=== PATIENT | male | born 1980 | race Two or more races ===

== ENCOUNTER 2020-04-04 07:01 | Inpatient (IN) | payer MEDICAID, OTHER ==
[~2020-04-04] VITALS: Ht 177.8 cm; Wt 115.0 kg
[2020-04-04] VITALS (34 sets, daily range): BP systolic 86–117; BP diastolic 41–72
[2020-04-04] MEDS ORDERED: DexAMETHasone SOD PHOS 10MG/1ML VIAL INJ IV ONE (08:15)
[2020-04-04] MEDS ORDERED: cefTRIAXone 1GM/50ML D5W 50 ML IV ONE (08:15)
[2020-04-04] MEDS ORDERED: AZITHROMYCIN 500MG/ 250ML 250 ML IV ONE (08:15)
[2020-04-04] MEDS ORDERED: FUROSEMIDE 40 MG/4 ML VIAL IV ONE (08:15)
[2020-04-04 08:20] LABS: Albumin 3.3 g/dL (3.4-5.0); Calcium 8.5 mg/dL (8.5-10.1); Potassium 3.7 mmol/L (3.5-5.1)
[2020-04-04 08:23] LABS: BUN/Creatinine Ratio 14.7; Bilirubin, Total 0.9 mg/dL (0.2-1.0); Total Protein 6.4 g/dL (6.4-8.2)
[2020-04-04 08:28] LABS: Basophils # (auto) 0.1 10 ^3/uL (0-0.2); Basophils % (auto) 0.6 % (0.0-2.0); Eosinophils # (auto) 0.1 10 ^3/uL (0-0.8); Eosinophils % (auto) 0.9 % (0.0-7.0); Hematocrit 42.7 % (41.0-53.0); Lymphocytes % (auto) 15.4 % (10.0-50.0); Mean Corpuscular Hemoglobin 29.8 pg (28.0-32.0); Mean Corpuscular Hgb Conc. 32.7 g/dL (32.0-36.0); Mean Corpuscular Volume 91.3 fL (80.0-100.0); Monocytes # (auto) 0.8 10 ^3/uL (0-1.3); Monocytes % (auto) 6.1 % (0.0-12.0); Neutrophils # (auto) 9.8 10 ^3/uL (1.6-8.6); Nucleated Red Blood Cells % 0.1 %; Platelet Count (auto) 298 10^3/uL (140-450); Red Blood Cells 4.68 10^6/uL (4.5-5.90); Red Cell Distribution Width 15.3 % (11.8-14.3); White Blood Cell 12.8 10^3/uL (4.4-10.8)
[2020-04-04 08:32] LABS: Magnesium 2.2 mg/dL (1.6-2.6)
[2020-04-04 08:35] LABS: INR 1.25 (0.9-1.15); Partial Thromboplastin Time 23.6 sec (23.0-31.2)
[2020-04-04 09:03] LABS: Blood Alcohol < 3.0 mg/dL (0-5)
[2020-04-04 09:12] LABS: CRP High Sensitivity 2.54 mg/dL (< 0.3); Lactate Dehydrogenase 371 U/L (87-241)
[2020-04-04] MEDS ORDERED: LABETALOL HCL 5 MG/ML 4ML SYRINGE IV ONE (10:00)
[2020-04-04] MEDS ORDERED: ETOMIDATE (2MG/ML) 20ML VIAL IV ONE (10:30)
[2020-04-04] MEDS ORDERED: SUCCINYLCHOLINE CHLORIDE 20 MG/ML 10ML VIAL IV ONE (10:30)
[2020-04-04] MEDS ORDERED: MIDAZOLAM DRIP 50 mg/50mL 50 ML IV SCH (10:30)
[2020-04-04] MEDS ORDERED: PROPOFOL 100 ML IV ONE (10:41)
[2020-04-04] MEDS ORDERED: PROPOFOL 100 ML IV SCH (10:45)
[2020-04-04] MEDS: MIDAZOLAM DRIP 50 mg/50mL 50 ML IV SCH ×2 (10:45→20:00)
[2020-04-04] MEDS ORDERED: IOHEXOL 350 MG/ML 100ML IJ ONE (11:01)
[2020-04-04] MEDS ORDERED: PHENYLEPHRINE IV 250 ML IV ONE (11:49)
[2020-04-04] MEDS ORDERED: PHENYLEPHRINE IV 250 ML IV SCH (12:00)
[2020-04-04] MEDS ORDERED: NITROGLYCERIN 0.4 MG SL TAB SL PRN (12:45)
[2020-04-04 13:01] LABS: Urine WBC None Seen /hpf (0 - 3)
[2020-04-04 13:13] LABS: Urine Bacteria MANY /hpf (None Seen); Urine Blood 2+ /uL (Negative); Urine Specific Gravity 1.024 (1.001-1.035); Urine Sperm PRESENT /hpf (None Seen)
[2020-04-04] MEDS: DOPamine 1600MCG/ML D5W 250 ML IV SCH ×2 (13:20→20:00)
[2020-04-04] MEDS: fentaNYL Drip 2500mCg/250mlNS 250 ML IV SCH ×2 (13:30→20:00)
[2020-04-04 13:41] LABS: Alcohol, Urine < 3.0 mg/dL (0-10); Amphetamine Screen, Urine POSITIVE (NEGATIVE); Barbiturate Scree,Urine NEGATIVE (NEGATIVE); Benzodiazephine Screen, Urine POSITIVE (NEGATIVE); Cannabinoid Screen, Urine NEGATIVE (NEGATIVE); Cocaine Screen, Urine NEGATIVE (NEGATIVE); Opiate Scree,Urine NEGATIVE (NEGATIVE)
[2020-04-04 13:50] LABS: Phencyclidine Screen, Urine NEGATIVE (NEGATIVE)
[2020-04-04] MEDS: metroNIDAZOLE 500MG/100ML 100 ML IV SCH ×2 (14:00→22:00)
[2020-04-04] MEDS ORDERED: CLINDAMYCIN 300MG IV 50 ML IV SCH (14:00)
[2020-04-04] MEDS: FUROSEMIDE 20 MG/2 ML VIAL IV SCH (17:59)
[2020-04-04] MEDS ORDERED: FUROSEMIDE 20 MG/2 ML VIAL IV SCH (18:00)
[2020-04-04] MEDS: CLINDAMYCIN 300MG IV 50 ML IV SCH (20:00)
[2020-04-04] MEDS: ATORVASTATIN 20 MG TAB PO SCH (22:00)
[2020-04-04] MEDS ORDERED: SODIUM BICARBONATE 8.4% INJ 50ML SYRINGE IV ONE (22:41)
[2020-04-04] MEDS ORDERED: EPINEPHrine HCL 1 MG/10 ML SYRG IV ONE (22:41)
[2020-04-04] MEDS ORDERED: CALCIUM CHLOR(10%) 100MG/ML 10ML SYRINGE IV ONE (22:41)
[2020-04-04] MEDS ORDERED: AMIODARONE HCL (50 MG/ ML) 3 ML VIAL IV ONE (22:41)
[2020-04-04] MEDS ORDERED: ADENOSINE 6 MG/2 ML INJ IV ONE (22:41)
[2020-04-05] VITALS (103 sets, daily range): BP systolic 82–127; BP diastolic 42–85
[2020-04-05] MEDS: MIDAZOLAM DRIP 50 mg/50mL 50 ML IV SCH ×4 (01:00→22:10)
[2020-04-05] MEDS: DOPamine 1600MCG/ML D5W 250 ML IV SCH (02:00)
[2020-04-05] MEDS: CLINDAMYCIN 300MG IV 50 ML IV SCH (04:00)
[2020-04-05 04:14] LABS: Basophils # (auto) 0 10 ^3/uL (0-0.2); Basophils % (auto) 0.2 % (0.0-2.0); Eosinophils # (auto) 0 10 ^3/uL (0-0.8); Hematocrit 44.4 % (41.0-53.0); Hemoglobin 14.5 g/dL (13.5-17.5); Lymphocytes # (auto) 0.8 10 ^3/uL (0.4-5.4); Lymphocytes % (auto) 4.5 % (10.0-50.0); Mean Corpuscular Hemoglobin 29.8 pg (28.0-32.0); Mean Corpuscular Hgb Conc. 32.7 g/dL (32.0-36.0); Monocytes # (auto) 0.9 10 ^3/uL (0-1.3); Neutrophils # (auto) 15.7 10 ^3/uL (1.6-8.6); Neutrophils % (auto) 90.3 % (37.0-80.0); Nucleated Red Blood Cells % 0.1 %; Platelet Count (auto) 316 10^3/uL (140-450); Red Blood Cells 4.88 10^6/uL (4.5-5.90); Red Cell Distribution Width 14.9 % (11.8-14.3); White Blood Cell 17.4 10^3/uL (4.4-10.8)
[2020-04-05 04:40] LABS: Calcium 8.8 mg/dL (8.5-10.1); Potassium 4.1 mmol/L (3.5-5.1)
[2020-04-05 04:45] LABS: BUN/Creatinine Ratio 16.7
[2020-04-05] MEDS: metroNIDAZOLE 500MG/100ML 100 ML IV SCH (06:00)
[2020-04-05] MEDS: FUROSEMIDE 20 MG/2 ML VIAL IV SCH ×2 (07:10→18:02)
[2020-04-05 08:54] LABS: Cholesterol 160 mg/dL (< 200); HDL Cholesterol 22 mg/dL (40-59); LDL Cholesterol 124 mg/dL (< 100); Triglycerides 130 mg/dL (< 150)
[2020-04-05] MEDS ORDERED: DAPAGLIFLOZIN 5 MG TAB PO SCH (10:00)
[2020-04-05] MEDS ORDERED: OPTISON 3ml Vial for INJ IV ONE (10:45)
[2020-04-05] MEDS: ENOXAPARIN SOD 40 MG/0.4 ML SYRINGE SC SCH (10:57)
[2020-04-05] MEDS: PANTOPRAZOLE 40 MG/10 ML VIAL INJ IV SCH (10:57)
[2020-04-05] MEDS ORDERED: PIPERACILLIN-TAZO 4.5GM 100 ML IV ONE (11:00)
[2020-04-05] MEDS: fentaNYL Drip 2500mCg/250mlNS 250 ML IV SCH (11:19)
[2020-04-05] MEDS: NOREPINEPHRINE 8 MG/250ML KIT 250 ML IV SCH (12:00)
[2020-04-05] MEDS ORDERED: PROPOFOL 100 ML IV ONE (18:21)
[2020-04-05] MEDS: PROPOFOL 100 ML IV SCH (18:30)
[2020-04-05] MEDS: PIPERACILLIN-TAZO 4.5GM 100 ML IV SCH (19:42)
[2020-04-05] MEDS: ATORVASTATIN 20 MG TAB PO SCH (21:41)
[2020-04-06] VITALS (99 sets, daily range): BP systolic 91–126; BP diastolic 52–87
[2020-04-06] MEDS: MIDAZOLAM DRIP 50 mg/50mL 50 ML IV SCH ×5 (01:07→22:03)
[2020-04-06] MEDS: PIPERACILLIN-TAZO 4.5GM 100 ML IV SCH ×3 (03:06→18:30)
[2020-04-06 04:12] LABS: Basophils # (auto) 0 10 ^3/uL (0-0.2); Basophils % (auto) 0.2 % (0.0-2.0); Eosinophils # (auto) 0 10 ^3/uL (0-0.8); Hematocrit 41.2 % (41.0-53.0); Hemoglobin 13.1 g/dL (13.5-17.5); Lymphocytes # (auto) 1.1 10 ^3/uL (0.4-5.4); Lymphocytes % (auto) 6.5 % (10.0-50.0); Mean Corpuscular Hemoglobin 29.4 pg (28.0-32.0); Mean Corpuscular Hgb Conc. 31.8 g/dL (32.0-36.0); Mean Corpuscular Volume 92.4 fL (80.0-100.0); Monocytes # (auto) 1.1 10 ^3/uL (0-1.3); Monocytes % (auto) 6.4 % (0.0-12.0); Neutrophils # (auto) 15.1 10 ^3/uL (1.6-8.6); Neutrophils % (auto) 86.9 % (37.0-80.0); Nucleated Red Blood Cells % 0.1 %; Platelet Count (auto) 307 10^3/uL (140-450); Red Blood Cells 4.46 10^6/uL (4.5-5.90); Red Cell Distribution Width 15.4 % (11.8-14.3); White Blood Cell 17.4 10^3/uL (4.4-10.8)
[2020-04-06 04:27] LABS: Potassium 4.4 mmol/L (3.5-5.1)
[2020-04-06 04:31] LABS: Albumin 2.7 g/dL (3.4-5.0); BUN/Creatinine Ratio 24.3; Bilirubin, Total 0.5 mg/dL (0.2-1.0); Calcium 8.1 mg/dL (8.5-10.1); Total Protein 5.9 g/dL (6.4-8.2)
[2020-04-06] MEDS: FUROSEMIDE 20 MG/2 ML VIAL IV SCH (05:36)
[2020-04-06] MEDS ORDERED: LORazepam 2MG/ML-1ML VIAL IV PRN (09:00)
[2020-04-06] MEDS: PANTOPRAZOLE 40 MG/10 ML VIAL INJ IV SCH (09:27)
[2020-04-06] MEDS: ENOXAPARIN SOD 40 MG/0.4 ML SYRINGE SC SCH (09:27)
[2020-04-06] MEDS: PROPOFOL 100 ML IV SCH ×2 (10:43→17:08)
[2020-04-06] MEDS: NOREPINEPHRINE 8 MG/250ML KIT 250 ML IV SCH (11:45)
[2020-04-06] MEDS: fentaNYL Drip 2500mCg/250mlNS 250 ML IV SCH ×2 (12:45→16:16)
[2020-04-06] MEDS ORDERED: FUROSEMIDE 20 MG/2 ML VIAL IV ONE (18:45)
[2020-04-06] MEDS: ATORVASTATIN 20 MG TAB PO SCH (21:57)
[2020-04-07] VITALS (103 sets, daily range): BP systolic 88–126; BP diastolic 46–87
[2020-04-07] MEDS: PIPERACILLIN-TAZO 4.5GM 100 ML IV SCH ×3 (03:28→18:14)
[2020-04-07 03:43] LABS: Basophils # (auto) 0 10 ^3/uL (0-0.2); Basophils % (auto) 0.3 % (0.0-2.0); Eosinophils # (auto) 0 10 ^3/uL (0-0.8); Eosinophils % (auto) 0.3 % (0.0-7.0); Hematocrit 39.6 % (41.0-53.0); Hemoglobin 12.6 g/dL (13.5-17.5); Lymphocytes # (auto) 1.5 10 ^3/uL (0.4-5.4); Lymphocytes % (auto) 11.3 % (10.0-50.0); Mean Corpuscular Hemoglobin 29.5 pg (28.0-32.0); Mean Corpuscular Hgb Conc. 31.9 g/dL (32.0-36.0); Mean Corpuscular Volume 92.5 fL (80.0-100.0); Monocytes # (auto) 1.3 10 ^3/uL (0-1.3); Monocytes % (auto) 9.7 % (0.0-12.0); Neutrophils # (auto) 10.2 10 ^3/uL (1.6-8.6); Neutrophils % (auto) 78.4 % (37.0-80.0); Platelet Count (auto) 263 10^3/uL (140-450); Red Blood Cells 4.28 10^6/uL (4.5-5.90); Red Cell Distribution Width 15.9 % (11.8-14.3)
[2020-04-07 04:05] LABS: Potassium 3.7 mmol/L (3.5-5.1)
[2020-04-07 04:21] LABS: Albumin 2.5 g/dL (3.4-5.0); BUN/Creatinine Ratio 21.7; Bilirubin, Total 0.5 mg/dL (0.2-1.0); Calcium 8.2 mg/dL (8.5-10.1); Total Protein 5.5 g/dL (6.4-8.2)
[2020-04-07] MEDS: FUROSEMIDE 20 MG/2 ML VIAL IV SCH ×2 (06:03→18:12)
[2020-04-07] MEDS: MIDAZOLAM DRIP 50 mg/50mL 50 ML IV SCH ×4 (06:42→18:12)
[2020-04-07] MEDS: fentaNYL Drip 2500mCg/250mlNS 250 ML IV SCH ×2 (06:43→22:04)
[2020-04-07] MEDS: PANTOPRAZOLE 40 MG/10 ML VIAL INJ IV SCH (09:11)
[2020-04-07] MEDS: ENOXAPARIN SOD 40 MG/0.4 ML SYRINGE SC SCH (09:11)
[2020-04-07] MEDS: NOREPINEPHRINE 8 MG/250ML KIT 250 ML IV SCH (11:45)
[2020-04-07] MEDS: PROPOFOL 100 ML IV SCH ×2 (13:45→22:05)
[2020-04-07] MEDS: ATORVASTATIN 20 MG TAB PO SCH (21:28)
[2020-04-08] VITALS (101 sets, daily range): BP systolic 92–166; BP diastolic 50–141
[2020-04-08] MEDS: PIPERACILLIN-TAZO 4.5GM 100 ML IV SCH ×2 (03:37→10:17)
[2020-04-08] MEDS: MIDAZOLAM DRIP 50 mg/50mL 50 ML IV SCH ×2 (03:41→13:49)
[2020-04-08 03:55] LABS: Basophils # (auto) 0 10 ^3/uL (0-0.2); Basophils % (auto) 0.4 % (0.0-2.0); Eosinophils # (auto) 0.2 10 ^3/uL (0-0.8); Eosinophils % (auto) 1.6 % (0.0-7.0); Hemoglobin 13.5 g/dL (13.5-17.5); Lymphocytes # (auto) 1.7 10 ^3/uL (0.4-5.4); Lymphocytes % (auto) 15.5 % (10.0-50.0); Mean Corpuscular Hgb Conc. 32.9 g/dL (32.0-36.0); Mean Corpuscular Volume 91.3 fL (80.0-100.0); Monocytes % (auto) 8.8 % (0.0-12.0); Neutrophils # (auto) 8.1 10 ^3/uL (1.6-8.6); Neutrophils % (auto) 73.7 % (37.0-80.0); Platelet Count (auto) 246 10^3/uL (140-450); Red Blood Cells 4.49 10^6/uL (4.5-5.90); Red Cell Distribution Width 15.9 % (11.8-14.3)
[2020-04-08 04:17] LABS: Potassium 3.3 mmol/L (3.5-5.1)
[2020-04-08 04:26] LABS: Albumin 2.4 g/dL (3.4-5.0); BUN/Creatinine Ratio 19.8; Bilirubin, Total 0.7 mg/dL (0.2-1.0); Calcium 8.4 mg/dL (8.5-10.1)
[2020-04-08] MEDS: FUROSEMIDE 20 MG/2 ML VIAL IV SCH (09:08)
[2020-04-08] MEDS: ENOXAPARIN SOD 40 MG/0.4 ML SYRINGE SC SCH (09:10)
[2020-04-08] MEDS: PANTOPRAZOLE 40 MG/10 ML VIAL INJ IV SCH (09:10)
[2020-04-08] MEDS: NOREPINEPHRINE 8 MG/250ML KIT 250 ML IV SCH (11:45)
[2020-04-08] MEDS: PROPOFOL 100 ML IV SCH ×3 (13:46→23:57)
[2020-04-08] MEDS ORDERED: chlordiazePOXIDE HCL 25 MG CAP PO ONE (14:45)
[2020-04-08] MEDS: PIPERACILLIN-TAZOB 2.25GM 50 ML IV SCH ×2 (17:13→23:37)
[2020-04-08] MEDS: chlordiazePOXIDE HCL 25 MG CAP PO SCH ×2 (17:13→23:37)
[2020-04-08] MEDS: fentaNYL Drip 2500mCg/250mlNS 250 ML IV SCH (17:31)
[2020-04-08] MEDS: ALBUMIN 25% 100 ML IV SCH (17:36)
[2020-04-08 19:00] LABS: Urine Bacteria NONE SEEN /hpf (None Seen); Urine Blood 3+ /uL (Negative); Urine Mucus FEW (None Seen); Urine Specific Gravity 1.011 (1.001-1.035); Urine WBC 5 /hpf (0 - 3)
[2020-04-08 19:10] LABS: Protein, Urine 26.1 mg/dL (0.0-11.9)
[2020-04-08] MEDS: ATORVASTATIN 20 MG TAB PO SCH (21:45)
[2020-04-09] VITALS (101 sets, daily range): BP systolic 102–134; BP diastolic 62–97
[2020-04-09] MEDS: ALBUMIN 25% 100 ML IV SCH ×2 (01:45→08:35)
[2020-04-09 04:33] LABS: Basophils # (auto) 0.1 10 ^3/uL (0-0.2); Basophils % (auto) 0.6 % (0.0-2.0); Eosinophils # (auto) 0.4 10 ^3/uL (0-0.8); Hematocrit 44.2 % (41.0-53.0); Hemoglobin 13.9 g/dL (13.5-17.5); Lymphocytes # (auto) 1.6 10 ^3/uL (0.4-5.4); Lymphocytes % (auto) 11.7 % (10.0-50.0); Mean Corpuscular Hemoglobin 28.8 pg (28.0-32.0); Mean Corpuscular Hgb Conc. 31.5 g/dL (32.0-36.0); Mean Corpuscular Volume 91.4 fL (80.0-100.0); Monocytes # (auto) 1.3 10 ^3/uL (0-1.3); Monocytes % (auto) 9.4 % (0.0-12.0); Neutrophils # (auto) 10.2 10 ^3/uL (1.6-8.6); Neutrophils % (auto) 75.3 % (37.0-80.0); Platelet Count (auto) 237 10^3/uL (140-450); Red Blood Cells 4.83 10^6/uL (4.5-5.90); Red Cell Distribution Width 15.7 % (11.8-14.3); White Blood Cell 13.6 10^3/uL (4.4-10.8)
[2020-04-09 05:00] LABS: Calcium 8.8 mg/dL (8.5-10.1); Potassium 3.7 mmol/L (3.5-5.1)
[2020-04-09 05:03] LABS: BUN/Creatinine Ratio 15.6
[2020-04-09] MEDS: chlordiazePOXIDE HCL 25 MG CAP PO SCH ×3 (06:32→17:29)
[2020-04-09] MEDS: PIPERACILLIN-TAZOB 2.25GM 50 ML IV SCH ×3 (06:32→17:29)
[2020-04-09] MEDS: ENOXAPARIN SOD 40 MG/0.4 ML SYRINGE SC SCH (09:51)
[2020-04-09] MEDS: PANTOPRAZOLE 40 MG/10 ML VIAL INJ IV SCH (09:51)
[2020-04-09] MEDS: FUROSEMIDE 20 MG/2 ML VIAL IV SCH (09:51)
[2020-04-09] MEDS: PROPOFOL 100 ML IV SCH ×3 (11:22→22:02)
[2020-04-09] MEDS: NOREPINEPHRINE 8 MG/250ML KIT 250 ML IV SCH (11:45)
[2020-04-09] MEDS: ATORVASTATIN 20 MG TAB PO SCH (22:02)
[2020-04-09] MEDS: Glucerna 1.2 Cal 1Liter BOTTLE GT SCH (22:03)
[2020-04-10] VITALS (103 sets, daily range): BP systolic 96–163; BP diastolic 57–106
[2020-04-10] MEDS: chlordiazePOXIDE HCL 25 MG CAP PO SCH ×4 (00:07→17:14)
[2020-04-10] MEDS: PIPERACILLIN-TAZOB 2.25GM 50 ML IV SCH ×4 (00:07→17:13)
[2020-04-10] MEDS: PROPOFOL 100 ML IV SCH ×6 (01:49→21:36)
[2020-04-10] MEDS: fentaNYL Drip 2500mCg/250mlNS 250 ML IV SCH (05:39)
[2020-04-10] MEDS ORDERED: ALBUMIN 5% 250 ML IV ONE (08:30)
[2020-04-10 08:50] LABS: Basophils # (auto) 0.1 10 ^3/uL (0-0.2); Basophils % (auto) 0.7 % (0.0-2.0); Eosinophils # (auto) 0.5 10 ^3/uL (0-0.8); Eosinophils % (auto) 3.5 % (0.0-7.0); Hematocrit 44.1 % (41.0-53.0); Hemoglobin 14.3 g/dL (13.5-17.5); Lymphocytes # (auto) 1.1 10 ^3/uL (0.4-5.4); Lymphocytes % (auto) 8.2 % (10.0-50.0); Mean Corpuscular Hemoglobin 29.5 pg (28.0-32.0); Mean Corpuscular Hgb Conc. 32.5 g/dL (32.0-36.0); Mean Corpuscular Volume 90.9 fL (80.0-100.0); Monocytes % (auto) 7.6 % (0.0-12.0); Neutrophils # (auto) 10.4 10 ^3/uL (1.6-8.6); Nucleated Red Blood Cells % 0.1 %; Platelet Count (auto) 230 10^3/uL (140-450); Red Blood Cells 4.86 10^6/uL (4.5-5.90); White Blood Cell 12.9 10^3/uL (4.4-10.8)
[2020-04-10 09:10] LABS: BUN/Creatinine Ratio 20.4; Calcium 9.1 mg/dL (8.5-10.1); Potassium 3.4 mmol/L (3.5-5.1)
[2020-04-10] MEDS: PANTOPRAZOLE 40 MG/10 ML VIAL INJ IV SCH (09:15)
[2020-04-10] MEDS ORDERED: METOCLOPRAMIDE HCL 5MG/ml INJ 2ml VIAL IV PRN ×2 (09:45→10:15)
[2020-04-10] MEDS ORDERED: ENOXAPARIN SOD 30 MG/0.3 ML SYRINGE SC SCH (10:00)
[2020-04-10] MEDS: MIDAZOLAM DRIP 50 mg/50mL 50 ML IV SCH (10:45)
[2020-04-10] MEDS: POTASSIUM CHL 20MEQ/100ML 100 ML IV SCH ×2 (10:52→12:17)
[2020-04-10] MEDS: D5W 5% 1,000 ML IV SCH (10:53)
[2020-04-10] MEDS: NOREPINEPHRINE 8 MG/250ML KIT 250 ML IV SCH (11:41)
[2020-04-10] MEDS: ATORVASTATIN 20 MG TAB PO SCH (21:41)
[2020-04-11] VITALS (64 sets, daily range): BP systolic 103–158; BP diastolic 67–113
[2020-04-11] MEDS: Glucerna 1.2 Cal 1Liter BOTTLE GT SCH (00:24)
[2020-04-11] MEDS: PROPOFOL 100 ML IV SCH ×6 (00:24→20:30)
[2020-04-11] MEDS: chlordiazePOXIDE HCL 25 MG CAP PO SCH ×4 (00:24→17:56)
[2020-04-11] MEDS: D5W 5% 1,000 ML IV SCH ×2 (00:25→12:25)
[2020-04-11] MEDS: PIPERACILLIN-TAZOB 2.25GM 50 ML IV SCH ×4 (00:25→17:56)
[2020-04-11] MEDS: fentaNYL Drip 2500mCg/250mlNS 250 ML IV SCH (02:54)
[2020-04-11 05:27] LABS: Basophils # (auto) 0.1 10 ^3/uL (0-0.2); Basophils % (auto) 0.4 % (0.0-2.0); Eosinophils # (auto) 0.8 10 ^3/uL (0-0.8); Eosinophils % (auto) 5.8 % (0.0-7.0); Hematocrit 43.7 % (41.0-53.0); Hemoglobin 14.2 g/dL (13.5-17.5); Lymphocytes # (auto) 1.5 10 ^3/uL (0.4-5.4); Lymphocytes % (auto) 11.2 % (10.0-50.0); Mean Corpuscular Hemoglobin 29.4 pg (28.0-32.0); Mean Corpuscular Hgb Conc. 32.4 g/dL (32.0-36.0); Mean Corpuscular Volume 90.8 fL (80.0-100.0); Monocytes # (auto) 1.2 10 ^3/uL (0-1.3); Monocytes % (auto) 8.9 % (0.0-12.0); Neutrophils # (auto) 10.1 10 ^3/uL (1.6-8.6); Neutrophils % (auto) 73.7 % (37.0-80.0); Platelet Count (auto) 243 10^3/uL (140-450); Red Blood Cells 4.81 10^6/uL (4.5-5.90); Red Cell Distribution Width 15.2 % (11.8-14.3); White Blood Cell 13.7 10^3/uL (4.4-10.8)
[2020-04-11 05:54] LABS: Potassium 3.5 mmol/L (3.5-5.1)
[2020-04-11 05:57] LABS: BUN/Creatinine Ratio 17.9
[2020-04-11] MEDS: MIDAZOLAM DRIP 50 mg/50mL 50 ML IV SCH (10:45)
[2020-04-11] MEDS: ENOXAPARIN SOD 40 MG/0.4 ML SYRINGE SC SCH (10:47)
[2020-04-11] MEDS: PANTOPRAZOLE 40 MG/10 ML VIAL INJ IV SCH (10:47)
[2020-04-11] MEDS: NOREPINEPHRINE 8 MG/250ML KIT 250 ML IV SCH (11:45)
[2020-04-11] MEDS: CARVEDILOL 3.125 MG TAB PO SCH ×2 (22:00→23:00)
[2020-04-11] MEDS: ATORVASTATIN 20 MG TAB PO SCH (22:00)
[2020-04-12] VITALS (59 sets, daily range): BP systolic 96–187; BP diastolic 57–124
[2020-04-12] MEDS: chlordiazePOXIDE HCL 25 MG CAP PO SCH ×2 (00:17→06:07)
[2020-04-12] MEDS: PIPERACILLIN-TAZOB 2.25GM 50 ML IV SCH ×3 (00:17→12:00)
[2020-04-12] MEDS: PROPOFOL 100 ML IV SCH ×2 (01:09→07:59)
[2020-04-12] MEDS: fentaNYL Drip 2500mCg/250mlNS 250 ML IV SCH (03:28)
[2020-04-12] MEDS: PANTOPRAZOLE 40 MG/10 ML VIAL INJ IV SCH (10:00)
[2020-04-12] MEDS: MIDAZOLAM DRIP 50 mg/50mL 50 ML IV SCH (10:45)
[2020-04-12] MEDS: ENOXAPARIN SOD 40 MG/0.4 ML SYRINGE SC SCH (11:11)
[2020-04-12] MEDS: NOREPINEPHRINE 8 MG/250ML KIT 250 ML IV SCH (11:45)
[2020-04-12] MEDS ORDERED: LORazepam 2MG/ML-1ML VIAL IV PRN (13:45)
[2020-04-12] MEDS: MORPHINE SULF INJ 2 MG/ML SYRINGE 1ML IV PRN (20:22)
[2020-04-12] MEDS: LORazepam 2MG/ML-1ML VIAL IV PRN (20:23)
[2020-04-12] MEDS: CARVEDILOL 3.125 MG TAB PO SCH (22:00)
[2020-04-12] MEDS: ATORVASTATIN 20 MG TAB PO SCH (22:00)
[2020-04-13] VITALS (9 sets, daily range): BP systolic 126–155; BP diastolic 81–99
[2020-04-13] MEDS: MORPHINE SULF INJ 2 MG/ML SYRINGE 1ML IV PRN (00:03)
[2020-04-13 04:20] LABS: Basophils # (auto) 0 10 ^3/uL (0-0.2); Basophils % (auto) 0.3 % (0.0-2.0); Eosinophils # (auto) 0.5 10 ^3/uL (0-0.8); Eosinophils % (auto) 3.4 % (0.0-7.0); Hematocrit 47.6 % (41.0-53.0); Hemoglobin 15.1 g/dL (13.5-17.5); Lymphocytes # (auto) 1.4 10 ^3/uL (0.4-5.4); Lymphocytes % (auto) 9.2 % (10.0-50.0); Mean Corpuscular Hemoglobin 28.7 pg (28.0-32.0); Mean Corpuscular Hgb Conc. 31.8 g/dL (32.0-36.0); Mean Corpuscular Volume 90.4 fL (80.0-100.0); Monocytes # (auto) 1.3 10 ^3/uL (0-1.3); Monocytes % (auto) 8.5 % (0.0-12.0); Neutrophils # (auto) 12.3 10 ^3/uL (1.6-8.6); Neutrophils % (auto) 78.6 % (37.0-80.0); Nucleated Red Blood Cells % 0.1 %; Platelet Count (auto) 276 10^3/uL (140-450); Red Blood Cells 5.27 10^6/uL (4.5-5.90); Red Cell Distribution Width 15.3 % (11.8-14.3); White Blood Cell 15.6 10^3/uL (4.4-10.8)
[2020-04-13 04:38] LABS: Calcium 9.8 mg/dL (8.5-10.1); Potassium 3.3 mmol/L (3.5-5.1)
[2020-04-13 04:39] LABS: BUN/Creatinine Ratio 17.1
[2020-04-13] MEDS: PIPERACILLIN-TAZOB 2.25GM 50 ML IV SCH ×5 (06:00→23:34)
[2020-04-13] MEDS: LORazepam 2MG/ML-1ML VIAL IV PRN (07:46)
[2020-04-13] MEDS ORDERED: HALOPERIDOL LACTATE 5 MG/ML INJ VIAL IM ONE (09:00)
[2020-04-13] MEDS ORDERED: D5W 5% 1,000 ML IV ONE (09:00)
[2020-04-13] MEDS: POTASSIUM CHL 20MEQ/100ML 100 ML IV SCH ×2 (09:11→11:12)
[2020-04-13] MEDS: ENOXAPARIN SOD 40 MG/0.4 ML SYRINGE SC SCH (09:24)
[2020-04-13] MEDS: PANTOPRAZOLE 40 MG/10 ML VIAL INJ IV SCH (09:24)
[2020-04-13] MEDS: CARVEDILOL 3.125 MG TAB PO SCH ×2 (10:00→23:33)
[2020-04-13] MEDS: MIDAZOLAM DRIP 50 mg/50mL 50 ML IV SCH (10:05)
[2020-04-13] MEDS ORDERED: HALOPERIDOL LACTATE 5 MG/ML INJ VIAL IM PRN (20:15)
[2020-04-13] MEDS: ATORVASTATIN 20 MG TAB PO SCH (23:34)
[2020-04-14] MEDS: LORazepam 2MG/ML-1ML VIAL IV PRN (02:51)
[2020-04-14 05:00] VITALS: BP 130/91
[2020-04-14] MEDS: PIPERACILLIN-TAZOB 2.25GM 50 ML IV SCH ×4 (05:33→23:46)
[2020-04-14 09:00] VITALS: BP 136/89
[2020-04-14] MEDS ORDERED: D5W 5% 1,000 ML IV ONE (09:15)
[2020-04-14] MEDS: CARVEDILOL 3.125 MG TAB PO SCH ×2 (10:00→14:20)
[2020-04-14] MEDS: PANTOPRAZOLE 40 MG/10 ML VIAL INJ IV SCH (12:14)
[2020-04-14] MEDS: ENOXAPARIN SOD 40 MG/0.4 ML SYRINGE SC SCH (12:15)
[2020-04-14 12:31] LABS: Basophils # (auto) 0.1 10 ^3/uL (0-0.2); Basophils % (auto) 0.8 % (0.0-2.0); Eosinophils # (auto) 0.3 10 ^3/uL (0-0.8); Eosinophils % (auto) 1.9 % (0.0-7.0); Lymphocytes # (auto) 2.1 10 ^3/uL (0.4-5.4); Lymphocytes % (auto) 13.2 % (10.0-50.0); Mean Corpuscular Hemoglobin 29.3 pg (28.0-32.0); Mean Corpuscular Volume 91.4 fL (80.0-100.0); Monocytes # (auto) 1.1 10 ^3/uL (0-1.3); Monocytes % (auto) 6.8 % (0.0-12.0); Neutrophils # (auto) 12.2 10 ^3/uL (1.6-8.6); Neutrophils % (auto) 77.3 % (37.0-80.0); Nucleated Red Blood Cells % 0.1 %; Platelet Count (auto) 301 10^3/uL (140-450); Red Blood Cells 5.47 10^6/uL (4.5-5.90); Red Cell Distribution Width 15.3 % (11.8-14.3); White Blood Cell 15.8 10^3/uL (4.4-10.8)
[2020-04-14 12:48] LABS: BUN/Creatinine Ratio 17.2; Calcium 9.7 mg/dL (8.5-10.1); Potassium 3.8 mmol/L (3.5-5.1)
[2020-04-14 13:00] VITALS: BP 133/91
[2020-04-14 16:18] VITALS: BP 129/88
[2020-04-14 22:00] VITALS: BP 136/93
[2020-04-14] MEDS: ATORVASTATIN 20 MG TAB PO SCH (22:31)
[2020-04-15] MEDS: PIPERACILLIN-TAZOB 2.25GM 50 ML IV SCH ×3 (05:27→17:47)
[2020-04-15 05:45] LABS: Basophils # (auto) 0.1 10 ^3/uL (0-0.2); Basophils % (auto) 0.4 % (0.0-2.0); Eosinophils # (auto) 0.9 10 ^3/uL (0-0.8); Eosinophils % (auto) 5.3 % (0.0-7.0); Hematocrit 47.6 % (41.0-53.0); Hemoglobin 15.2 g/dL (13.5-17.5); Lymphocytes # (auto) 3.3 10 ^3/uL (0.4-5.4); Lymphocytes % (auto) 19.6 % (10.0-50.0); Mean Corpuscular Hemoglobin 28.8 pg (28.0-32.0); Mean Corpuscular Hgb Conc. 31.9 g/dL (32.0-36.0); Mean Corpuscular Volume 90.3 fL (80.0-100.0); Monocytes # (auto) 1.1 10 ^3/uL (0-1.3); Monocytes % (auto) 6.7 % (0.0-12.0); Neutrophils # (auto) 11.3 10 ^3/uL (1.6-8.6); Nucleated Red Blood Cells % 0.1 %; Platelet Count (auto) 281 10^3/uL (140-450); Red Blood Cells 5.28 10^6/uL (4.5-5.90); Red Cell Distribution Width 15.2 % (11.8-14.3); White Blood Cell 16.7 10^3/uL (4.4-10.8)
[2020-04-15 06:08] LABS: Potassium 3.3 mmol/L (3.5-5.1)
[2020-04-15 06:11] LABS: BUN/Creatinine Ratio 17.2; Calcium 8.8 mg/dL (8.5-10.1)
[2020-04-15 09:00] VITALS: BP 131/96
[2020-04-15] MEDS ORDERED: POTASSIUM EFFERVESENT TAB 25 MEQ PO ONE (10:00)
[2020-04-15] MEDS: PANTOPRAZOLE 40 MG/10 ML VIAL INJ IV SCH (10:17)
[2020-04-15] MEDS: ENOXAPARIN SOD 40 MG/0.4 ML SYRINGE SC SCH (10:18)
[2020-04-15] MEDS: CARVEDILOL 3.125 MG TAB PO SCH ×2 (10:18→22:00)
[2020-04-15 13:00] VITALS: BP 131/93
[2020-04-15 17:00] VITALS: BP 132/95
[2020-04-15] MEDS: ATORVASTATIN 20 MG TAB PO SCH (22:00)
[2020-04-16] MEDS: PIPERACILLIN-TAZOB 2.25GM 50 ML IV SCH ×4 (00:30→17:36)
[2020-04-16 01:17] VITALS: BP 140/104
[2020-04-16] MEDS: ACETAMINOPHEN 650 mg PER 20.3 mL UD PO PRN (04:08)
[2020-04-16 05:41] VITALS: BP 148/93
[2020-04-16 06:30] LABS: Basophils # (auto) 0.1 10 ^3/uL (0-0.2); Basophils % (auto) 0.4 % (0.0-2.0); Eosinophils # (auto) 0.8 10 ^3/uL (0-0.8); Eosinophils % (auto) 4.9 % (0.0-7.0); Hematocrit 45.9 % (41.0-53.0); Hemoglobin 14.8 g/dL (13.5-17.5); Lymphocytes # (auto) 2.6 10 ^3/uL (0.4-5.4); Lymphocytes % (auto) 15.5 % (10.0-50.0); Mean Corpuscular Hemoglobin 28.8 pg (28.0-32.0); Mean Corpuscular Hgb Conc. 32.1 g/dL (32.0-36.0); Mean Corpuscular Volume 89.5 fL (80.0-100.0); Monocytes % (auto) 6.3 % (0.0-12.0); Neutrophils # (auto) 12.1 10 ^3/uL (1.6-8.6); Neutrophils % (auto) 72.9 % (37.0-80.0); Platelet Count (auto) 269 10^3/uL (140-450); Red Blood Cells 5.13 10^6/uL (4.5-5.90); Red Cell Distribution Width 14.8 % (11.8-14.3); White Blood Cell 16.6 10^3/uL (4.4-10.8)
[2020-04-16 06:57] LABS: Albumin 2.8 g/dL (3.4-5.0); Calcium 8.6 mg/dL (8.5-10.1); Potassium 3.3 mmol/L (3.5-5.1)
[2020-04-16 07:01] LABS: BUN/Creatinine Ratio 17.6; Bilirubin, Total 0.6 mg/dL (0.2-1.0); Total Protein 6.8 g/dL (6.4-8.2)
[2020-04-16] MEDS: ENOXAPARIN SOD 40 MG/0.4 ML SYRINGE SC SCH (09:07)
[2020-04-16] MEDS: PANTOPRAZOLE 40 MG/10 ML VIAL INJ IV SCH (09:07)
[2020-04-16] MEDS: CARVEDILOL 3.125 MG TAB PO SCH ×2 (09:08→22:18)
[2020-04-16 09:11] VITALS: BP 141/106
[2020-04-16 12:30] VITALS: BP 144/96
[2020-04-16 17:00] VITALS: BP 139/98
[2020-04-16] MEDS: POTASSIUM EFFERVESENT TAB 25 MEQ PO SCH (17:36)
[2020-04-16] MEDS: ATORVASTATIN 20 MG TAB PO SCH (22:17)
[2020-04-17] MEDS: PIPERACILLIN-TAZOB 2.25GM 50 ML IV SCH ×4 (00:07→17:40)
[2020-04-17 05:00] VITALS: BP 137/100
[2020-04-17 06:08] LABS: Basophils # (auto) 0.1 10 ^3/uL (0-0.2); Basophils % (auto) 0.4 % (0.0-2.0); Eosinophils # (auto) 0.7 10 ^3/uL (0-0.8); Eosinophils % (auto) 4.7 % (0.0-7.0); Hematocrit 44.7 % (41.0-53.0); Hemoglobin 14.3 g/dL (13.5-17.5); Lymphocytes # (auto) 2.8 10 ^3/uL (0.4-5.4); Lymphocytes % (auto) 19.6 % (10.0-50.0); Mean Corpuscular Hemoglobin 28.8 pg (28.0-32.0); Mean Corpuscular Hgb Conc. 32.1 g/dL (32.0-36.0); Mean Corpuscular Volume 89.5 fL (80.0-100.0); Monocytes % (auto) 7.4 % (0.0-12.0); Neutrophils # (auto) 9.5 10 ^3/uL (1.6-8.6); Neutrophils % (auto) 67.9 % (37.0-80.0); Nucleated Red Blood Cells % 0.1 %; Platelet Count (auto) 215 10^3/uL (140-450); Red Blood Cells 4.99 10^6/uL (4.5-5.90); Red Cell Distribution Width 14.9 % (11.8-14.3)
[2020-04-17 06:44] LABS: Potassium 3.5 mmol/L (3.5-5.1)
[2020-04-17 06:51] LABS: BUN/Creatinine Ratio 16.1; Calcium 8.7 mg/dL (8.5-10.1)
[2020-04-17 09:00] VITALS: BP 143/83
[2020-04-17] MEDS: POTASSIUM EFFERVESENT TAB 25 MEQ PO SCH (09:37)
[2020-04-17] MEDS: PANTOPRAZOLE 40 MG/10 ML VIAL INJ IV SCH (09:37)
[2020-04-17] MEDS: CARVEDILOL 3.125 MG TAB PO SCH ×2 (09:37→22:54)
[2020-04-17] MEDS: ENOXAPARIN SOD 40 MG/0.4 ML SYRINGE SC SCH (09:38)
[2020-04-17] MEDS: ACETAMINOPHEN 650 mg PER 20.3 mL UD PO PRN (12:00)
[2020-04-17 12:27] VITALS: BP 142/93
[2020-04-17 17:00] VITALS: BP 151/106
[2020-04-17] MEDS: HYDROcodone-ACET 5/325MG TAB PO PRN (17:09)
[2020-04-17 22:00] VITALS: BP 133/85
[2020-04-17] MEDS: ATORVASTATIN 20 MG TAB PO SCH (22:55)
[2020-04-18] MEDS: PIPERACILLIN-TAZOB 2.25GM 50 ML IV SCH ×3 (00:17→11:53)
[2020-04-18] MEDS: HYDROcodone-ACET 5/325MG TAB PO PRN (01:30)
[2020-04-18 04:27] VITALS: BP 131/94
[2020-04-18 06:17] LABS: Basophils # (auto) 0.1 10 ^3/uL (0-0.2); Basophils % (auto) 0.5 % (0.0-2.0); Eosinophils # (auto) 0.4 10 ^3/uL (0-0.8); Eosinophils % (auto) 2.6 % (0.0-7.0); Hemoglobin 14.6 g/dL (13.5-17.5); Lymphocytes # (auto) 2.1 10 ^3/uL (0.4-5.4); Lymphocytes % (auto) 13.7 % (10.0-50.0); Mean Corpuscular Hemoglobin 28.5 pg (28.0-32.0); Mean Corpuscular Hgb Conc. 31.6 g/dL (32.0-36.0); Monocytes % (auto) 6.8 % (0.0-12.0); Neutrophils # (auto) 11.7 10 ^3/uL (1.6-8.6); Neutrophils % (auto) 76.4 % (37.0-80.0); Nucleated Red Blood Cells % 0.1 %; Platelet Count (auto) 206 10^3/uL (140-450); Red Blood Cells 5.11 10^6/uL (4.5-5.90); Red Cell Distribution Width 14.8 % (11.8-14.3); White Blood Cell 15.4 10^3/uL (4.4-10.8)
[2020-04-18 06:39] LABS: Potassium 3.6 mmol/L (3.5-5.1)
[2020-04-18 07:16] LABS: BUN/Creatinine Ratio 13.7; Calcium 9.2 mg/dL (8.5-10.1)
[2020-04-18] MEDS ORDERED: FUROSEMIDE 20 MG/2 ML VIAL IV ONE (08:00)
[2020-04-18 08:38] VITALS: BP 132/82
[2020-04-18] MEDS: POTASSIUM EFFERVESENT TAB 25 MEQ PO SCH (10:30)
[2020-04-18] MEDS: PANTOPRAZOLE 40 MG/10 ML VIAL INJ IV SCH (10:30)
[2020-04-18] MEDS: ENOXAPARIN SOD 40 MG/0.4 ML SYRINGE SC SCH (10:30)
[2020-04-18] MEDS: CARVEDILOL 12.5 MG TAB PO SCH ×2 (10:31→21:34)
[2020-04-18 14:00] VITALS: BP 104/50
[2020-04-18 17:05] VITALS: BP 93/53
[2020-04-18] MEDS: PIPERACILLIN-TAZOB 3.375GM 100 ML IV SCH ×2 (17:37→23:29)
[2020-04-18] MEDS: FUROSEMIDE 20 MG/2 ML VIAL IV SCH (17:38)
[2020-04-18] MEDS: ATORVASTATIN 20 MG TAB PO SCH (21:33)
[2020-04-18 22:00] VITALS: BP 108/66
[2020-04-19 05:00] VITALS: BP 128/67
[2020-04-19] MEDS: PIPERACILLIN-TAZOB 3.375GM 100 ML IV SCH ×2 (05:49→11:43)
[2020-04-19] MEDS: FUROSEMIDE 20 MG/2 ML VIAL IV SCH (05:49)
[2020-04-19 07:18] LABS: Potassium 3.8 mmol/L (3.5-5.1)
[2020-04-19 07:25] LABS: Albumin 3.1 g/dL (3.4-5.0); BUN/Creatinine Ratio 12.1; Bilirubin, Total 0.4 mg/dL (0.2-1.0); Calcium 8.6 mg/dL (8.5-10.1); Total Protein 7.7 g/dL (6.4-8.2)
[2020-04-19 08:30] VITALS: BP 107/68
[2020-04-19] MEDS ORDERED: LISINOPRIL 10 MG TAB PO SCH (10:00)
[2020-04-19] MEDS: PANTOPRAZOLE 40 MG/10 ML VIAL INJ IV SCH (10:14)
[2020-04-19] MEDS: CARVEDILOL 12.5 MG TAB PO SCH (10:15)
[2020-04-19] MEDS: ENOXAPARIN SOD 40 MG/0.4 ML SYRINGE SC SCH (10:15)
[2020-04-19] MEDS: POTASSIUM EFFERVESENT TAB 25 MEQ PO SCH (10:15)
[2020-04-19 13:00] VITALS: BP 121/67
[2020-04-19] MEDS ORDERED: ATOR40TA52 PO (13:55)
[2020-04-19] MEDS ORDERED: LISI-648 PO (13:56)
[2020-04-19] MEDS ORDERED: CAR125T PO (13:56)
[2020-04-19] MEDS ORDERED: FURO20TA3 PO (13:57)
== END 2020-04-19 16:15 | disposition home or self-care (01) | DRG 720 ==
LOC: ER 07:01 → TELE 07:02 → ICU WEST 14:50 → ICU CENTRL 04-06 03:05 → TELE-WESTW 04-13 17:57 → TELE-CENTR 04-16 09:25 → TELE-EAST 04-19 10:55
PROVIDERS: ADMIT Nurse Practitioner Acute Care; ATTEND Internal Medicine Nephrology
PROC: 5A1955Z Respiratory Ventilation, Greater than 96 Consecutive Hours (ICD-10-PCS; principal; 2020-04-04)
PROC: 0BH17EZ Insertion of Endotracheal Airway into Trachea, Via Natural or Artificial Opening (ICD-10-PCS; 2020-04-04)
PROC: 5A12012 Performance of Cardiac Output, Single, Manual (ICD-10-PCS; 2020-04-04)
PROC: 02HV33Z Insertion of Infusion Device into Superior Vena Cava, Percutaneous Approach (ICD-10-PCS; 2020-04-04)
DX: A41.9 Sepsis, unspecified organism (principal); N17.0 Acute kidney failure with tubular necrosis; J69.0 Pneumonitis due to inhalation of food and vomit; R57.0 Cardiogenic shock; J96.01 Acute respiratory failure with hypoxia; J96.02 Acute respiratory failure with hypercapnia; I46.9 Cardiac arrest, cause unspecified; I21.A1 Myocardial infarction type 2; Z99.11 Dependence on respirator [ventilator] status; G92 Toxic encephalopathy; R65.21 Severe sepsis with septic shock; I50.23 Acute on chronic systolic (congestive) heart failure; I42.9 Cardiomyopathy, unspecified; E66.01 Morbid (severe) obesity due to excess calories; I31.3 Pericardial effusion (noninflammatory); E87.0 Hyperosmolality and hypernatremia; F19.10 Other psychoactive substance abuse, uncomplicated; E78.5 Hyperlipidemia, unspecified; Z20.828 Contact with and (suspected) exposure to other viral communicable diseases; K76.9 Liver disease, unspecified; K82.9 Disease of gallbladder, unspecified; F14.90 Cocaine use, unspecified, uncomplicated; K59.00 Constipation, unspecified; E87.6 Hypokalemia; Z68.36 Body mass index [BMI] 36.0-36.9, adult
CPT/HCPCS: 36415; 36600; 70450; 71045; 71046; 71275; 74018; 74176; 76705; 80048; 80053; 80061; 80307; 80320; 81001; 82570; 82728; 82805; 83605; 83615; 83690; 83735; 83880; 84156; 84484; 85025; 85610; 85730; 86141; 87040; 87070; 87081; 87086; 87205; 87426; 92610; 92950; 93005; 93306; 94002; 94003; 95819; 96365; 96366; 96367; 96368; 96375; 97110; 97116; 97163; 97530; 99291; A4565; C9113; G0378; J0153; J0696; J1100; J2250; J2543; J2704; J3480; J3490; J7060; P9047; Q9956

== ENCOUNTER → 2020-05-08 | Emergency (ER) | payer MEDICAID ==
[~2020-05-08] MED LIST: ATOR40TA52 PO; CAR125T PO; LISI-648 PO
== END | disposition left against medical advice (07) ==
LOC: ER 20:09
DX: R21 Rash and other nonspecific skin eruption (principal); Z53.21 Procedure and treatment not carried out due to patient leaving prior to being seen by health care provider